=== PATIENT | female | born 2000 | race African-American/Black ===

== ENCOUNTER 2024-02-27 14:18 | Emergency (ER) | payer OTHER ==
[2024-02-27 14:46] VITALS: TEMP 98.1; BMI 21.9
[2024-02-27 16:12] LABS: BASO % 1.2 % (0-2.0); EOS % 2.8 % (0-4.5); HEMATOCRIT 35.6 % (32.4-45.2); LYMPH % 23.4 % (8-40); MCH 26.6 pg (25.7-33.7); MCHC 33.7 g/dl (32.0-36.0); MEAN PLT VOLUME 8.3 fl (7.5-11.1); MONO % 7.4 % (3.8-10.2); NEUT % 65.2 % (42.8-82.8); PLATELET COUNT 288 10^3/uL (134-434); RDW 14.1 % (11.6-15.6); WHITE BLOOD COUNT 7.9 K/mm3 (4.0-10.0)
[2024-02-27 16:39] LABS: CHLORIDE 106 mmol/L (98-107); SODIUM 134 mmol/L (136-145)
[2024-02-27 16:41] LABS: CALCIUM 8.7 mg/dL (8.5-10.1)
[2024-02-27 16:42] LABS: ALBUMIN 3.6 g/dl (3.4-5.0); BLOOD UREA NITROGEN 10.4 mg/dL (7-18); CO2 26 mmol/L (21-32); GLUCOSE,RANDOM 81 mg/dL (74-106)
[2024-02-27 16:45] LABS: CREATININE 0.6 mg/dL (0.55-1.3); SGOT/AST 67 U/L (15-37); SGPT/ALT 22 U/L (13-61)
[2024-02-27 16:47] LABS: BILIRUBIN,TOTAL 0.3 mg/dL (0.2-1); TOT PROT 7.4 g/dl (6.4-8.2)
[2024-02-27 16:48] LABS: ALK PHOS 66 U/L (45-117)
[2024-02-27 16:51] LABS: ANION GAP 2 mmol/L (4-13); POTASSIUM 7.1 mmol/L (3.5-5.1)
[2024-02-27 17:13] LABS: EPI CELLS 30 /uL (0-25.1); HYALINE CASTS 0 /uL (0-3.1); URINE APPEARANCE CLOUDY; URINE BACTERIA 490 /uL (0-1359); URINE BILIRUBIN NEGATIVE (NEGATIVE); URINE COLOR YELLOW; URINE GLUCOSE (UA) NEGATIVE (NEGATIVE); URINE KETONE NEGATIVE (NEGATIVE); URINE LEUK ESTERASE NEGATIVE (NEGATIVE); URINE NITRITE NEGATIVE (NEGATIVE); URINE PROTEIN NEGATIVE (NEGATIVE); URINE RBC 39 /uL (0-23.9); URINE WBC 5 /uL (0-25.8)
[2024-02-27 17:21] LABS: HCG,QUALITATIVE URINE Negative
[2024-02-27 20:23] VITALS: BP 117/68; PULSE 68; RESP 17
== END 2024-02-27 20:28 | disposition home or self-care (01) ==
LOC: JER 14:18
DX: G40.909 Epilepsy, unspecified, not intractable, without status epilepticus (principal)
CPT/HCPCS: 36415; 80053; 81003; 82962; 84132; 84703; 85025; 87086; 93005; 93010; 99284-25